=== PATIENT | male | born 1990 | race Two or more races ===

== ENCOUNTER 2019-07-24 14:49 | Emergency (ER) | payer SELFPAY ==
[2019-07-24] MEDS ORDERED: Sodium Chloride 0.9% 10 ML Syringe FLUSH PRN (15:29)
[2019-07-24] MEDS ORDERED: Ondansetron 4 MG/2 ML SDV IVPUSH ONE (15:29)
[2019-07-24] MEDS ORDERED: fentaNYL 100 MCG/2 ML SDV IVPUSH ONE (15:29)
[2019-07-24] MEDS ORDERED: Lactated Ringers 1,000 ML IV SCH (15:30)
--- NOTE | 2019-07-24 15:33 | EDM.PDOC ---
ED HPI GENERAL MEDICAL PROBLEM - General Chief Complaint: Abdominal Pain Stated Complaint: RIGHT SIDE PAIN Time Seen by Provider: 07/24/19 15:28 Source of Information: Reports: Patient, Family, RN Notes Reviewed, Other ( Procedures Rn) History Limitations: Reports: Language Barrier - History of Present Illness INITIAL COMMENTS - FREE TEXT/NARRATIVE: 29-year-old gentleman presents emergency department a complaint of abdominal pain. He is [place]-speaking only therefore we use the interpretive services. States the pain started today after urination it is predominantly in the right lower quadrant the pain is constant he does feel nauseated he is not passing gas denies any fevers shortness of breath or chest pain he does admit to abdominal surgery of a hernia repair on that side a couple years ago. - Related Data Allergies Allergy/AdvReac Type Severity Reaction Status Date / Time No Known Allergies Allergy Verified 07/24/19 15:08 Home Meds: Home Meds NK [No Known Home Meds] 07/24/19 [History] Past Medical History - Past Surgical History GI Surgical History: Reports: Hernia Repair/Other Social & Family History - Tobacco Use Smoking Status *Q: Light Tobacco Smoker Years of Tobacco use: 5 Packs/Tins Daily: 0.2 - Recreational Drug Use Recreational Drug Use: No ED ROS GENERAL - Review of Systems Review Of Systems: See Below Constitutional: Reports: No Symptoms HEENT: Reports: No Symptoms Respiratory: Reports: No Symptoms Cardiovascular: Reports: No Symptoms GI/Abdominal: Reports: Abdominal Pain, Nausea. Denies: Flatus, Vomiting : Reports: No Symptoms Musculoskeletal: Reports: No Symptoms Skin: Reports: No Symptoms Neurological: Reports: No Symptoms ED EXAM, GI/ABD - Physical Exam Exam: See Below Exam Limited By: Language Barrier General Appearance: Alert, WD/WN, No Apparent Distress Head: Atraumatic, Normocephalic Neck: Normal Inspection, Supple, Non-Tender, Full Range of Motion Respiratory/Chest: No Respiratory Distress, Lungs Clear, Normal Breath Sounds, No Accessory Muscle Use, Chest Non-Tender Cardiovascular: Regular Rate, Rhythm, No Murmur GI/Abdominal Exam: Soft, Tender Extremities: Normal Inspection, No Pedal Edema Course - Vital Signs Last Recorded V/S: Last Vital Signs Temp 96.6 F 07/24/19 15:13 Pulse 86 07/24/19 15:13 Resp 18 07/24/19 15:13 BP 166/88 H 07/24/19 15:13 Pulse Ox 99 07/24/19 15:13 - Orders/Labs/Meds Orders: Active Orders 24 hr Category Date Time Status Peripheral IV Care [RC] . DIRECTED Care 07/24/19 15:29 Active UA W/MICROSCOPIC [URIN] Urgent Lab 07/24/19 15:29 Ordered Lactated Ringers [Ringers, Lactated] 1,000 ml Med 07/24/19 15:30 Active IV ASDIRECTED Sodium Chloride 0.9% [Normal Saline] 85 ml Med 07/24/19 16:00 Active IV ASDIRECTED Sodium Chloride 0.9% [Saline Flush] Med 07/24/19 15:29 Active 10 ml FLUSH ASDIRECTED PRN Peripheral IV Insertion Adult [OM.PC] Urgent Oth 07/24/19 15:29 Ordered Medication Orders Lactated Ringer's (Ringers, Lactated) 1,000 mls @ 999 mls/hr IV ASDIRECTED JERE Last Admin: 07/24/19 15:48 Dose: 999 mls/hr Sodium Chloride (Normal Saline) 85 mls @ 0 mls/hr IV ASDIRECTED JERE Last Admin: 07/24/19 16:12 Dose: 100 mls/hr Sodium Chloride (Saline Flush) 10 ml FLUSH ASDIRECTED PRN PRN Reason: Keep Vein Open Last Admin: 07/24/19 15:41 Dose: 10 ml Labs: Laboratory Tests 07/24/19 07/24/19 07/24/19 Range/Units 15:35 15:35 15:35 WBC 11.1 H (4.5-11.0) K/uL RBC 5.34 (4.30-5.90) M/uL Hgb 14.2 (12.0-15.0) g/dL Hct 45.4 (40.0-54.0) % MCV 85 (80-98) fL MCH 27 (27-31) pg MCHC 31 L (32-36) % Plt Count 302 (150-400) K/uL Neut % (Auto) 59 (36-66) % Lymph % (Auto) 29 (24-44) % Love % (Auto) 7 H (2-6) % Eos % (Auto) 4 (2-4) % Baso % (Auto) 1 (0-1) % Sodium 140 (140-148) mmol/L Potassium 3.9 (3.6-5.2) mmol/L Chloride 105 (100-108) mmol/L Carbon Dioxide 28 (21-32) mmol/L Anion Gap 6.9 (5.0-14.0) mmol/L BUN 10 (7-18) mg/dL Creatinine 1.0 (0.8-1.3) mg/dL Est Cr Clr Drug Dosing 111.53 mL/min Estimated GFR (MDRD) > 60 (>60) Glucose 106 (74-106) mg/dL Lactic Acid 1.2 (0.4-2.0) mmol/L Calcium 8.8 (8.5-10.1) mg/dL Total Bilirubin 0.3 (0.2-1.0) mg/dL AST 27 (15-37) U/L ALT 64 (12-78) U/L Alkaline Phosphatase 92 (46-116) U/L Total Protein 7.8 (6.4-8.2) g/dL Albumin 4.2 (3.4-5.0) g/dL Globulin 3.6 H (2.3-3.5) g/dL Albumin/Globulin Ratio 1.2 (1.2-2.2) Lipase 67 L (73-393) U/L Meds: Medications Generic Name Dose Route Start Last Admin Trade Name Freq PRN Reason Stop Dose Admin Lactated Ringer's 1,000 mls @ 999 mls/hr 07/24/19 15:30 07/24/19 15:48 Ringers, Lactated IV 999 mls/hr ASDIRECTED JERE Administration Sodium Chloride 85 mls @ 0 mls/hr 07/24/19 16:00 07/24/19 16:12 Normal Saline IV 100 mls/hr ASDIRECTED JERE Administration KVO Sodium Chloride 10 ml 07/24/19 15:29 07/24/19 15:41 Saline Flush FLUSH 10 ml ASDIRECTED PRN Administration Keep Vein Open Discontinued Medications Generic Name Dose Route Start Last Admin Trade Name Freq PRN Reason Stop Dose Admin Fentanyl 50 mcg 07/24/19 15:29 07/24/19 15:41 Sublimaze IVPUSH 07/24/19 15:30 50 mcg ONETIME ONE Administration Iopamidol 150 ml 07/24/19 16:00 07/24/19 16:12 Isovue-300 (61%) IV 150 ml . DIRECTED JERE Administration Ketorolac Tromethamine 30 mg 07/24/19 16:18 07/24/19 16:31 Toradol IVPUSH 07/24/19 16:19 30 mg ONETIME ONE Administration Ondansetron HCl 4 mg 07/24/19 15:29 07/24/19 15:41 Zofran IVPUSH 07/24/19 15:30 4 mg ONETIME ONE Administration Sodium Chloride 10 ml 07/24/19 15:46 07/24/19 16:12 Saline Flush FLUSH 07/24/19 15:47 10 ml ONETIME ONE Administration Departure - Departure Time of Disposition: 16:53 Disposition: Home, Self-Care 01 Condition: Fair Clinical Impression: Nephrolithiasis - Discharge Information Instructions: Kidney Stones, [id number] Referrals: PCP,None [Primary Care Provider] - Forms: ED Department Discharge Additional Instructions: Use the ketorolac as needed for pain control, continue to push fluids, please followup with your primary care provider in 3-5 days if not better, please call return to the emergency department with worsening of symptoms. Sepsis Event Note - Evaluation Sepsis Screening Result: No Definite Risk - Focused Exam Vital Signs: Vital Signs Temp Pulse Resp BP Pulse Ox 07/24/19 15:13 96.6 F 86 18 166/88 H 99 07/24/19 15:07 96.6 F 86 18 166/88 H 99 Date Exam was Performed: 07/24/19 Time Exam was Performed: 16:48 - My Orders Last 24 Hours: My Active Orders 07/24/19 15:29 Peripheral IV Care [RC] . DIRECTED UA W/MICROSCOPIC [URIN] Urgent Sodium Chloride 0.9% [Saline Flush] 10 ml FLUSH ASDIRECTED PRN Peripheral IV Insertion Adult [OM.PC] Urgent 07/24/19 15:30 Lactated Ringers [Ringers, Lactated] 1,000 ml IV ASDIRECTED 07/24/19 16:00 Sodium Chloride 0.9% [Normal Saline] 85 ml IV ASDIRECTED - Assessment/Plan Last 24 Hours: My Active Orders 07/24/19 15:29 Peripheral IV Care [RC] . DIRECTED UA W/MICROSCOPIC [URIN] Urgent Sodium Chloride 0.9% [Saline Flush] 10 ml FLUSH ASDIRECTED PRN Peripheral IV Insertion Adult [OM.PC] Urgent 07/24/19 15:30 Lactated Ringers [Ringers, Lactated] 1,000 ml IV ASDIRECTED 07/24/19 16:00 Sodium Chloride 0.9% [Normal Saline] 85 ml IV ASDIRECTED Plan: Assessment Acuity = acute Site and laterality = right-sided hydronephrosis, 4 mm stone appreciated in the bladder Etiology = nephrolithiasis Manifestations = pain now improved Location of injury = Home Lab values = CBC, CMP unremarkable urinalysis pending CT scan describes note above Plan Discharge home with ketorolac 10 mg p.o. 3 times daily PRN total #20 and follow- up with primary care in 3 to 5 days if no improvement This note was dictated using [employer] voice recognition software please call with any questions on syntax or grammar.
[2019-07-24] MEDS ORDERED: Sodium Chloride 0.9% 10 ML Syringe FLUSH ONE (15:46)
[2019-07-24] MEDS ORDERED: Iopamidol 612 MG/ML 150 ML Bottle IV SCH (16:00)
[2019-07-24] MEDS ORDERED: Ketorolac 30 MG/ML SDV IVPUSH ONE (16:18)
--- NOTE | 2019-07-24 16:20 | CRLCT ---
Indication: Lower quadrant abdominal pain. Technique: Multiple contiguous axial images were obtained from the lung bases through the symphysis pubis after the intravenous administration of 150 milliliters nonionic contrast. Please note that all CT scans at this facility use dose modulation, iterative reconstruction, and/or weight-based dosing when appropriate to reduce radiation dose to as low as reasonably achievable. Comparison: None Findings: The lung bases are clear. The heart is normal in size. No pericardial effusion is identified. Mild diffuse fatty infiltration of the liver is identified. No intrahepatic biliary ductal dilatation is identified. The gallbladder, spleen, pancreas, adrenals, and left kidney are normal. Right-sided hydronephrosis and hydroureter identified. In the pelvis, within the urinary bladder, to the right of midline, 3 millimeter calculus is identified. This is consistent with a recently passed right ureteral stone. The prostate gland is normal. The small and large bowel are normal in caliber. The appendix is normal. No free air or free fluid is identified within the abdomen or pelvis. The aorta is normal in caliber. No lytic or blastic lesions of the spine are identified. Impression: Right-sided hydronephrosis and hydroureter. A 3-4 mm stone is identified within the bladder just to the right of midline, consistent with a recently passed stone. Mild diffuse fatty infiltration of the liver Please note that all CT scans at this facility use dose modulation, iterative reconstruction, and/or weight-based dosing when appropriate to reduce radiation dose to as low as reasonably achievable. Dictated by Kathi Resendiz MD @ Jul 24 2019 4:17PM Signed by Dr. Kathi Resendiz @ Jul 24 2019 4:19PM
== END 2019-07-24 17:16 | disposition home or self-care (01) ==
LOC: JP.ED 14:49
DX: N13.2 Hydronephrosis with renal and ureteral calculous obstruction (principal); F17.210 Nicotine dependence, cigarettes, uncomplicated
CPT/HCPCS: 36415; 74177; 80053; 83605; 83690; 85025; 96361; 96374; 96375; 99284; J1885; J2405; J3010; J7050; J7120; Q9967